=== PATIENT | female | born 1955 | race Caucasian/White ===

== ENCOUNTER 2017-06-03 12:53 | Emergency (ER) | payer OTHER ==
[~2017-06-03] VITALS: Ht 154.9 cm; Wt 705.0 kg
[~2017-06-03 12:53] MED LIST: CIPR500T4 PO; DIOV160T3 PO; FURO20 PO; KCL10C PO; LEVO75TA3 PO; LOVA1TAB47 PO; PLAV75TA PO; SYMB80AE INH
[2017-06-03 12:55] VITALS: BP 200/91; PULSE 98; RESP 18; TEMP 97.8; O2SAT 98
--- NOTE | 2017-06-03 13:34 | PD ---
HPI Chief Complaint: Respiratory Symptoms Time Seen by Provider: 13:34 Travel History International Travel<30 days: No Contact w/Intl Traveler<30days: Yes Name of Country Traveled to: N/A, airflight attendants supervisor Traveled to known affect area: No History of Present Illness HPI 62-year-old female with history of asthma, lupus, hypertension, GERD presents to emergency department today for evaluation of worsening cough and chest congestion and difficulty breathing. Patient states that she has had a cough for approximately 6 weeks. Of the last 2-3 weeks, the chest congestion and tightness has worsened. She is a airflight attendants supervisor and states that over the last 2 days her symptoms have gotten significantly worse. She states that she has felt like she is unable to get her breath. She denies any significant pain , just a tightness. She has no cardiac history. Patient states she came here for evaluation because she has to fly in 2 days and once her symptoms to be better. Cough is nonproductive. She has no fever or chills. She denies any history of PE or DVT. Patient has been treated with Levaquin and is now on Augmentin for the symptoms. She is completing a Medrol Dosepak. She has no other symptoms to report this time. PFSH Past Medical History Hx Anticoagulant Therapy: Yes Asthma: Yes Heart Rhythm Problems: Yes (IRREGULAR RHYTHM, MITRAL VALVE PROLAPSE) Cancer: No Cardiac Catheterization: No Cardiovascular Problems: Yes (hypertension, edema) High Cholesterol: Yes Chemotherapy: No Cerebrovascular Accident: No Diabetes: No Diminished Hearing: No Endocrine: Yes Genitourinary: No Hepatitis: No Hiatal Hernia: No Hypertension: Yes Immune Disorder: No Neurologic: Yes (FAMILY HX OF CVA) Psychiatric: Yes (ANXIETY) Reproductive: No Respiratory: Yes Thyroid Disease: Yes (HYPOTHYROID) ?: Not LMP: post menopausal Menopausal: Yes : 3 Para: 2 Miscarriage: 1 Tubal Ligation: Yes Past Surgical History Abdominal Surgery: Yes (APPY) AICD: No Appendectomy: Yes Body Medical Devices: BREASTS Coronary Artery Bypass Graft: No Gynecologic Surgery: Yes (LASH) Hysterectomy: Yes Joint Replacement: No Oral Surgery: Yes (TONSILECTOMY) Pacemaker: No Tonsillectomy: Yes Other Surgery: Yes (BREAST AUGMENTATION) Social History Alcohol Use: Yes (OCCASIONAL) Tobacco Use: No Substance Use: No Allergies-Medications (Allergen,Severity, Reaction): Coded Allergies: aspirin (Unverified Allergy, Severe, 02/07/17) RASH, RINGING IN EARS codeine (Unverified Allergy, Severe, 02/07/17) monosodium glutamate (Unverified Allergy, Severe, TACHYCARDIA, SHAKEY, ) sulfamethoxazole (Unverified Allergy, Severe, Rash, 02/07/17) trimethoprim (Unverified Allergy, Severe, Rash, 02/07/17) Uncoded Allergies: onions (Allergy, Mild, migranes, 11/13/06) Reported Meds & Prescriptions Reported Meds & Active Scripts Active Omeprazole 40 Mg Cap 40 Mg PO DAILY 14 Days Tessalon Perles (Benzonatate) 100 Mg Cap 100 Mg PO TID PRN Prednisone 50 Mg Tab 50 Mg PO DAILY 5 Days Reported Cipro (Ciprofloxacin HCl) 500 Mg Tab 500 Mg PO BID KCl 10 Meq Cap (Potassium Chloride) 10 Meq Capcr 10 Meq PO DAILY PRN Lasix 20 Mg Tab (Furosemide) 20 Mg Tab 20 Mg PO DAILY PRN Symbicort (Budesonide/Formoterol Fumarate) 80 Mcg/4.5 Mcg Aer 2 Puff INH DAILY * SHAKE WELL BEFORE USE * Levothyroxine 75 mcg (Levothyroxine Sodium) 75 Mcg Tab 75 Mcg PO DAILY Diovan Hct 160/12.5 (HCTZ/Valsartan) Unknown Strength Tab PO DAILY Plavix (Clopidogrel Bisulfate) 75 Mg Tab 75 Mg PO DAILY Mevacor (Lovastatin) 20 Mg Tab 20 Mg PO DAILY Review of Systems Except as stated in HPI: all other systems reviewed are Neg Physical Exam Narrative GENERAL: Well-nourished female patient, ambulatory no acute distress. Patient does have a coarse cough during her assessment. SKIN: Focused skin assessment warm/dry. HEAD: Atraumatic. Normocephalic. EYES: Pupils equal and round. No scleral icterus. No injection or drainage. ENT: No nasal bleeding or discharge. Mucous membranes pink and moist. NECK: Trachea midline. No JVD. CARDIOVASCULAR: Elevated rate and rhythm. No murmur appreciated. RESPIRATORY: No accessory muscle use. Diminished bases, INSPIRATORY AND EXPIRATORY wheeze, to auscultation. Breath sounds equal bilaterally. GASTROINTESTINAL: Abdomen soft, non-tender, nondistended. Hepatic and splenic margins not palpable. MUSCULOSKELETAL: No obvious deformities. No clubbing. No cyanosis. No edema. NEUROLOGICAL: Awake and alert. No obvious cranial nerve deficits. Motor grossly within normal limits. Normal speech. PSYCHIATRIC: Appropriate mood and affect; insight and judgment normal. Data Data Last Documented VS Vital Signs Date Time Temp Pulse Resp B/P (MAP) Pulse Ox O2 Delivery O2 Flow Rate FiO2 06/03/17 14:59 90 21 159/75 (103) 100 Room Air 06/03/17 12:55 97.8 Orders Orders Complete Blood Count With Diff (06/03/17 13:41) Basic Metabolic Panel (Bmp) (06/03/17 13:41) D-Dimer (06/03/17 13:41) Iv Access Insert/Monitor (06/03/17 13:41) Electrocardiogram (06/03/17 13:41) Ecg Monitoring (06/03/17 13:41) Oximetry (06/03/17 13:41) Oxygen Administration (06/03/17 13:41) Chest, Pa & Lat (06/03/17 13:41) Sodium Chloride 0.9% Flush (Ns Flush) (06/03/17 13:45) Methylprednisolone So Succ Inj (Solumedr (06/03/17 13:45) Albuterol-Ipratropium Neb (Duoneb Neb) (06/03/17 13:45) Potassium Chloride (Kcl) (06/03/17 15:00) Al-Mag Hy-Si 40-40-4 Mg/Ml Liq (Mag-Al P (06/03/17 15:15) Lidocaine 2% Viscous (Xylocaine 2% Visco (06/03/17 15:15) Ct Pulmonary Angiogram (06/03/17 ) Iohexol 350 Inj (Omnipaque 350 Inj) (06/03/17 15:34) Ed Discharge Order (06/03/17 15:59) Labs Laboratory Tests Test 06/03/17 13:57 White Blood Count 8.4 TH/MM3 Red Blood Count 4.28 MIL/MM3 Hemoglobin 13.3 GM/DL Hematocrit 38.8 % Mean Corpuscular Volume 90.5 FL Mean Corpuscular Hemoglobin 31.2 PG Mean Corpuscular Hemoglobin Concent 34.4 % Red Cell Distribution Width 14.1 % Platelet Count 227 TH/MM3 Mean Platelet Volume 6.2 FL Neutrophils (%) (Auto) 63.5 % Lymphocytes (%) (Auto) 22.2 % Monocytes (%) (Auto) 13.2 % Eosinophils (%) (Auto) 0.7 % Basophils (%) (Auto) 0.4 % Neutrophils # (Auto) 5.3 TH/MM3 Lymphocytes # (Auto) 1.9 TH/MM3 Monocytes # (Auto) 1.1 TH/MM3 Eosinophils # (Auto) 0.1 TH/MM3 Basophils # (Auto) 0.0 TH/MM3 CBC Comment AUTO DIFF Differential Total Cells Counted 100 Neutrophils % (Manual) 67 % Band Neutrophils % 2 % Lymphocytes % 19 % Monocytes % 8 % Neutrophils # (Manual) 6.1 TH/MM3 Metamyelocytes 2 % Myelocytes 2 % Differential Comment FINAL DIFF MANUAL Hypersegmented Polys Platelet Estimate NORMAL Platelet Morphology Comment NORMAL D-Dimer Quantitative (PE/DVT) 0.35 MG/L FEU Blood Urea Nitrogen 18 MG/DL Creatinine 1.00 MG/DL Random Glucose 98 MG/DL Calcium Level 8.5 MG/DL Sodium Level 134 MEQ/L Potassium Level 3.1 MEQ/L Chloride Level 100 MEQ/L Carbon Dioxide Level 25.0 MEQ/L Anion Gap 9 MEQ/L Estimat Glomerular Filtration Rate 56 ML/MIN MDM Medical Decision Making Medical Screen Exam Complete: Yes Emergency Medical Condition: Yes Medical Record Reviewed: Yes Differential Diagnosis Pneumonia versus influenza versus PE versus shree-induced cough versus bronchitis versus asthma exacerbation Narrative Course 62-year-old female presents emergency department for evaluation. Patient appears without distress. She does have a coarse cough, inspiratory and expiratory wheeze. She does feel short of breath however vital signs are stable and oxygen saturation is maintained greater than 96% on room air. Patient is given DuoNeb treatments and IV Solu-Medrol. Upon reassessment she states she does feel somewhat better but still short of breath. We will attempt GI cocktail in case this is reflux exacerbating her symptoms. Upon reassessment, patient states that this has helped her symptoms tremendously. I have discussed The patient my attending physician Dr. Arias who is also assess the patient. Will move forward with CT pulmonary angiogram. This is complete with no PE or acute infiltrate identified. Patient will be started on a higher dose of oral steroids encouraged to follow-up with her primary care provider and seek pulmonary evaluation. We have discussed the possibility of Shree induced cough and she is to discuss this with her primary care provider. She agrees to return immediately with any acute worsening of symptoms. Diagnosis Primary Impression: Asthma Qualified Codes: J45.41 - Moderate persistent asthma with (acute) exacerbation Additional Impressions: Shortness of breath Cough Bronchospasm Gastric reflux Referrals: Primary Care Physician Crop Supervisor Patient Instructions: Moderate Sedation in Children (ED) Additional Instructions: Follow up with your primary care provider- discuss alternative BP medication as lisinopril may be inducing your cough Return to ED with acute worsening of symptoms Med/Other Pt SpecificInfo: Prescription(s) given Scripts Aluminum Hydroxide-Mag Carb Liq (Gaviscon Liq) 95-358 Mg/15 Ml Susp 15 ML PO QID Y for HEARTBURN, #300 ML 0 Refills Maximum 120 mL/24 hrs. Prov: Rosy Pizarro 06/03/17 Omeprazole (Omeprazole) 40 Mg Cap 40 MG PO DAILY for 14 Days, #14 CAP 0 Refills Prov: Rosy Pizarro 06/03/17 Benzonatate (Tessalon Perles) 100 Mg Cap 100 MG PO TID Y for COUGH, #21 CAP 0 Refills Prov: Rosy Pizarro 06/03/17 Prednisone (Prednisone) 50 Mg Tab 50 MG PO DAILY for 5 Days, #5 TAB 0 Refills Prov: Rosy Pizarro 06/03/17 Disposition: 01 DISCHARGE HOME Condition: Stable Rosy Pizarro Jun 03, 2017 13:34
[2017-06-03] MEDS ORDERED: methylPREDNISolone SOD SUCC 125 MG/2 ML VIAL IV PUSH ONE (13:45)
[2017-06-03] MEDS ORDERED: SODIUM CHLORIDE 0.9% FLUSH 10 ML FLUSH IVF PRN (13:45)
[2017-06-03] MEDS: RESP: ALBUTEROL 2.5 MG/IPRATROPIUM 0.5 MG NEB (SCH) INH (13:56)
[2017-06-03 14:06] LABS: AUTOMATED NEUTROPHIL # 5.3 TH/MM3 (1.8-7.7); BASOPHIL % 0.4 % (0.0-2.0); EOSINOPHIL # 0.1 TH/MM3 (0-0.4); EOSINOPHIL % 0.7 % (0.0-4.0); HEMATOCRIT 38.8 % (35.0-46.0); LYMPH % 22.2 % (9.0-44.0); LYMPHOCYTE # 1.9 TH/MM3 (1.0-4.8); MEAN CELL VOLUME 90.5 FL (80.0-100.0); MEAN CORPUSCULAR HEMOGLOBIN 31.2 PG (27.0-34.0); MEAN CORPUSCULAR HGB CONC 34.4 % (32.0-36.0); MONO % 13.2 % (0.0-8.0); NEUT % 63.5 % (16.0-70.0); PLATELET COUNT 227 TH/MM3 (150-450); RED BLOOD COUNT 4.28 MIL/MM3 (4.00-5.30); RED CELL DISTRIBUTION WIDTH 14.1 % (11.6-17.2); WHITE BLOOD COUNT 8.4 TH/MM3 (4.0-11.0)
[2017-06-03 14:16] LABS: HEMO FLAGS AUTO DIFF
[2017-06-03 14:25] LABS: POTASSIUM 3.1 MEQ/L (3.5-5.1)
[2017-06-03 14:38] LABS: BANDS 2 % (0-6); METAMYELOCYTES 2 % (0-1); MYELOCYTES 2 % (0-0); NEUTROPHIL # MANUAL DIFF 6.1 TH/MM3 (1.8-7.7); POLYS (SEG NEUTROPHILS) 67 % (16-70); WBC DIFF SAMPLE 100
[2017-06-03 14:39] LABS: PLATELET ESTIMATE SMEAR NORMAL (NORMAL); PLATELET MORPHOLOGY NORMAL (NORMAL); SCAN/DIFF FINAL DIFF MANUAL
--- NOTE | 2017-06-03 14:50 | RADRPT ---
EXAM DATE/TIME: 06/03/2017 14:35 [facility] COMPARISON: No previous studies available for comparison. INDICATIONS : Asthma. Cough. Congestion. Short of breath. MEDICAL HISTORY : None. SURGICAL HISTORY : None. ENCOUNTER: Initial ACUITY: 1 week PAIN SCORE: 0/10 LOCATION: Bilateral chest FINDINGS: PA and lateral views of the chest demonstrate the lungs to be symmetrically aerated without evidence of mass, infiltrate or effusion. The cardiomediastinal contours are unremarkable. Osseous structure s are intact. CONCLUSION: Normal examination for a patient of this age. Cristi Amaya MD on June 03, 2017 at 14:48 Board Certified Radiologist. This report was verified electronically.
[2017-06-03 14:59] VITALS: BP 159/75; PULSE 90; RESP 21; O2SAT 100
[2017-06-03] MEDS ORDERED: POTASSIUM CHLORIDE 10 MEQ CONTROLLED RELEASE TAB PO ONE (15:00)
[2017-06-03] MEDS ORDERED: ALUMINUM/MAGNESIUM/SIMETH 30 ML CUP PO ONE (15:15)
[2017-06-03] MEDS ORDERED: LIDOCAINE VISCOUS 2% SOLN 15 ML UDC PO ONE (15:15)
[2017-06-03] MEDS ORDERED: IOHEXOL 350 MG/ML 10 ML VIAL (for RAD DIAG) IVCONTRAST ONE (15:34)
--- NOTE | 2017-06-03 15:50 | RADRPT ---
EXAM DATE/TIME: 06/03/2017 15:12 [facility] COMPARISON: No previous studies available for comparison. INDICATIONS : Cough and shortness of breath for three weeks. IV CONTRAST: 65 cc Omnipaque 350 (iohexol) IV RADIATION DOSE: 7.39 CTDIvol (mGy) MEDICAL HISTORY : Hypertension. Lupus. SURGICAL HISTORY : Tonsillectomy. ENCOUNTER: Initial ACUITY: 1 day PAIN SCALE: 0/10 LOCATION: Bilateral chest TECHNIQUE: Volumetric scanning of the chest was performed using a pulmonary embolism protocol MIP images were re constructed. Using automated exposure control and adjustment of the mA and/or kV according to patien t size, radiation dose was kept as low as reasonably achievable to obtain optimal diagnostic quality images. DICOM format image data is available electronically for review and comparison. Follow-up recommendations for detected pulmonary nodules are based at a minimum on nodule size and pa tient risk factors according to Fleischner Society Guidelines. FINDINGS: PULMONARY ARTERIES: No filling defects are seen in the pulmonary arteries through the segmental level. LUNGS: There is no consolidation or pneumothorax . No concerning pulmonary nodule is visualized. PLEURAE: There is no pleural thickening or pleural effusion. MEDIASTINUM: There is good visualization of the great vessels of the middle mediastinum. No evidence of mediastin al or hilar adenopathy/mass. MUSCULOSKELETAL: Within normal limits for patient age. MISCELLANEOUS: The visualized upper abdominal organs demonstrate no acute abnormality. CONCLUSION: 1. No evidence of pulmonary embolism. 2. No acute pulmonary infiltrates. Cristi Amaya MD on June 03, 2017 at 15:46 Board Certified Radiologist. This report was verified electronically.
[2017-06-03] MEDS ORDERED: ZANT150T2 PO (16:16)
[2017-06-03] MEDS ORDERED: BENZ100 PO (16:16)
[2017-06-03] MEDS ORDERED: PRED50 PO (16:16)
[2017-06-03] MEDS ORDERED: OMEP40CA2 PO (16:22)
[2017-06-03] MEDS ORDERED: GAVISUS PO (16:44)
[2017-06-03 17:45] VITALS: BP 147/71
--- NOTE | 2017-06-04 12:24 | EKG ---
Date Performed: 06/03/2017 Time Performed: 14:14:05 PTAGE: 62 years EKG: Sinus rhythm POSSIBLE RIGHT VENTRICULAR CONDUCTION DELAY BORDERLINE ECG PREVIOUS TRACING : 09/19/2014 15.37 Since previous tracing, T-wave change improved, otherwise n o significant change. DOCTOR: Andrea Connell Interpretating Date/Time 06/04/2017 12:23:54
== END 2017-06-03 17:48 | disposition home or self-care (01) ==
LOC: NEPE 12:53
DX: J45.41 Moderate persistent asthma with (acute) exacerbation (principal); K21.9 Gastro-esophageal reflux disease without esophagitis; E03.9 Hypothyroidism, unspecified; E78.00 Pure hypercholesterolemia, unspecified; I10 Essential (primary) hypertension; Z79.02 Long term (current) use of antithrombotics/antiplatelets
CPT/HCPCS: 71020; 71275; 80048; 85007; 85027; 85379; 93005; 94664; 96374; 99285; J2930; Q9967

== ENCOUNTER 2017-06-19 10:36 | Emergency (ER) | payer OTHER ==
[~2017-06-19] VITALS: Ht 154.9 cm; Wt 68.0 kg
[~2017-06-19 10:36] MED LIST changes: +BENZ100 PO; +GAVISUS PO; +OMEP40CA2 PO; +PRED50 PO
[2017-06-19 10:44] VITALS: BP 142/80; PULSE 110; RESP 20; TEMP 102.4; O2SAT 95
[2017-06-19] MEDS ORDERED: ALPR0.5T3 PO (10:58)
[2017-06-19] MEDS ORDERED: POTA10CA PO (10:58)
[2017-06-19] MEDS ORDERED: OMEP40CA2 PO (10:58)
[2017-06-19] MEDS ORDERED: FURO20TA PO (10:58)
[2017-06-19] MEDS ORDERED: VALS80TA2 (10:58)
[2017-06-19] MEDS ORDERED: TOPI25TA7 PO (10:58)
[2017-06-19] MEDS ORDERED: TIOT1AER2 INH (10:58)
[2017-06-19] MEDS ORDERED: CLOP75TA PO (10:58)
[2017-06-19] MEDS ORDERED: ZOLP5TAB3 PO (10:58)
[2017-06-19] MEDS ORDERED: FLUT50SP EACH NARE (10:58)
[2017-06-19] MEDS ORDERED: LOVA20TA PO (10:58)
[2017-06-19] MEDS ORDERED: SYMB160A INH (10:58)
[2017-06-19] MEDS ORDERED: LEVO50TA4 PO (10:58)
[2017-06-19] MEDS ORDERED: HYDR200T3 PO (10:58)
[2017-06-19 11:11] VITALS: BP 141/65; PULSE 99; RESP 19; O2SAT 95
[2017-06-19 11:12] VITALS: BP 141/65; PULSE 99; RESP 19; TEMP 102.4; O2SAT 95
[2017-06-19] MEDS ORDERED: IBUPROFEN 800 MG TAB PO ONE (11:15)
[2017-06-19] MEDS ORDERED: SODIUM CHLOR 0.9% 1000 ML INJ 1,000 ML IV ONE (11:15)
--- NOTE | 2017-06-19 11:29 | PD ---
HPI Chief Complaint: Cold / Flu Symptoms Time Seen by Provider: 10:55 Travel History International Travel<30 days: No Contact w/Intl Traveler<30days: No Traveled to known affect area: No History of Present Illness HPI 62-year-old female presents to the emergency department for evaluation of cough , fever, chills, dysuria 4 days. Patient states she just recently returned from [place] on plane. The symptoms started when she was on vacation. She was tubing in the snow with her grandkids. Her grandkids were all sick with various symptoms. She states one of her grandkids had strep throat but the patient states she has no throat pain at this time The cough is nonproductive and feels like extreme congestion in her chest. She has mild rhinorrhea. Patient complains of generalized body aches. Patient denies any abdominal pain , nausea or vomiting or diarrhea. Patient has history of hypertension, hyperlipidemia and asthma. She takes Plavix daily for blood clot prevention. She states her primary started her on Plavix prophylactically due to her extensive family history of heart disease. PFSH Past Medical History Hx Anticoagulant Therapy: Yes Asthma: Yes Autoimmune Disease: Yes (LUPUS) Heart Rhythm Problems: Yes (IRREGULAR RHYTHM, MITRAL VALVE PROLAPSE) Cancer: No Cardiac Catheterization: No Cardiovascular Problems: Yes (hypertension, edema) High Cholesterol: Yes Chemotherapy: No Cerebrovascular Accident: No Diabetes: No Diminished Hearing: No Endocrine: Yes Gastrointestinal Disorders: Yes (IBS) Genitourinary: No Hepatitis: No Hiatal Hernia: No Hypertension: Yes Immune Disorder: No Neurologic: Yes (FAMILY HX OF CVA) Psychiatric: Yes (ANXIETY) Reproductive: No Respiratory: Yes Thyroid Disease: Yes (HYPOTHYROID) Tetanus Vaccination: Unknown Influenza Vaccination: No ?: Not Menopausal: No : 3 Para: 2 Miscarriage: 1 Tubal Ligation: Yes Past Surgical History Abdominal Surgery: Yes (APPY) AICD: No Appendectomy: Yes Body Medical Devices: BREASTS Coronary Artery Bypass Graft: No Gynecologic Surgery: Yes (LASH) Hysterectomy: Yes Joint Replacement: No Oral Surgery: Yes (TONSILECTOMY) Pacemaker: No Tonsillectomy: Yes Other Surgery: Yes (BREAST AUGMENTATION) Family History Family Myocardial Infarction: Yes Social History Alcohol Use: No Tobacco Use: No Substance Use: No Allergies-Medications (Allergen,Severity, Reaction): Coded Allergies: aspirin (Unverified Allergy, Severe, 06/19/17) RASH, RINGING IN EARS codeine (Unverified Allergy, Severe, 06/19/17) monosodium glutamate (Unverified Allergy, Severe, TACHYCARDIA, SHAKEY, ) sulfamethoxazole (Unverified Allergy, Severe, Rash, 06/19/17) trimethoprim (Unverified Allergy, Severe, Rash, 06/19/17) Uncoded Allergies: onions (Allergy, Mild, migranes, 11/13/06) Reported Meds & Prescriptions Reported Meds & Active Scripts Active Reported Furosemide 20 Mg Tab 20 Mg PO DAILY Omeprazole 40 Mg Cap 40 Mg PO DAILY Topiramate 25 Mg Tab 25 Mg PO BID Hydroxychloroquine (Hydroxychloroquine Sulfate) 200 Mg Tab 200 Mg PO DAILY Takw with food Zolpidem (Zolpidem Tartrate) 5 Mg Tab 5 Mg PO HS PRN Lovastatin 20 Mg Tab 20 Mg PO DAILY Levothyroxine (Levothyroxine Sodium) 50 Mcg Tab 50 Mcg PO DAILY Fluticasone Nasal [place] 50 Mcg/Act Naspr 50 Mcg EACH NARE BID 50 mcg/spray Potassium Chloride ER (Potassium Chloride) 10 Meq Cap 10 Meq PO DAILY Spiriva Respimat Inh (Tiotropium Inh) 1.25 Mcg/Act Aero 2 Puff INH DAILY 1.25 mcg = 1 inhalation Clopidogrel (Clopidogrel Bisulfate) 75 Mg Tab 75 Mg PO DAILY Alprazolam 0.5 Mg Tab 0.5 Mg PO HS PRN Symbicort Inh (Budesonide/Formoterol Fumarate) 160-4.5 Mcg/Act Aero 1 Puff INH Q12HR Valsartan-Hctz 80-12.5 mg Tab (Valsartan/Hydrochlorothiazide) 80 Mg-12.5 Mg Tablet Review of Systems Except as stated in HPI: all other systems reviewed are Neg Physical Exam Narrative GENERAL: Well-nourished, well-developed 62-year-old female in no acute respiratory distress. SKIN: Focused skin assessment warm/flushed/dry. HEAD: Atraumatic. Normocephalic. EYES: Pupils equal and round. No scleral icterus. No injection or drainage. ENT: No nasal bleeding or discharge. Mucous membranes pink and moist. NECK: Trachea midline. No JVD. CARDIOVASCULAR: Regular rate and rhythm. No murmur appreciated. RESPIRATORY: No accessory muscle use. Breath sounds course in bilateral bases. GASTROINTESTINAL: Abdomen soft, non-tender, nondistended. Hepatic and splenic margins not palpable. MUSCULOSKELETAL: No obvious deformities. No clubbing. No cyanosis. No edema. NEUROLOGICAL: Awake and alert. No obvious cranial nerve deficits. Motor grossly within normal limits. Normal speech. PSYCHIATRIC: Appropriate mood and affect; insight and judgment normal. Data Data Last Documented VS Vital Signs Date Time Temp Pulse Resp B/P (MAP) Pulse Ox O2 Delivery O2 Flow Rate FiO2 06/19/17 13:01 83 17 133/60 (84) 99 06/19/17 12:29 100.8 06/19/17 11:37 Room Air Orders Orders Ibuprofen (Motrin) (06/19/17 11:15) Sodium Chlor 0.9% 1000 Ml Inj (Ns 1000 M (06/19/17 11:15) Electrocardiogram (06/19/17 11:14) Complete Blood Count With Diff (06/19/17 11:14) Comprehensive Metabolic Panel (06/19/17 11:14) Lactic Acid Sepsis Protocol (06/19/17 11:14) Magnesium (Mg) (06/19/17 11:14) Lipase (06/19/17 11:14) Ckmb (Isoenzyme) Profile (06/19/17 11:14) Troponin I (06/19/17 11:14) Urinalysis - C+S If Indicated (06/19/17 11:14) Influenzae A/B Antigen (06/19/17 11:14) Blood Culture (06/19/17 11:14) Chest, Single Ap (06/19/17 11:14) Ecg Monitoring (06/19/17 11:14) Iv Access Insert/Monitor (06/19/17 11:14) Oximetry (06/19/17 11:14) CKMB (06/19/17 11:20) CKMB% (06/19/17 11:20) Ed Discharge Order (06/19/17 12:25) Labs Laboratory Tests Test 06/19/17 11:20 White Blood Count 3.9 TH/MM3 Red Blood Count 3.76 MIL/MM3 Hemoglobin 12.0 GM/DL Hematocrit 35.0 % Mean Corpuscular Volume 93.0 FL Mean Corpuscular Hemoglobin 31.9 PG Mean Corpuscular Hemoglobin Concent 34.3 % Red Cell Distribution Width 14.6 % Platelet Count 201 TH/MM3 Mean Platelet Volume 6.7 FL Neutrophils (%) (Auto) 63.5 % Lymphocytes (%) (Auto) 18.7 % Monocytes (%) (Auto) 16.3 % Eosinophils (%) (Auto) 1.1 % Basophils (%) (Auto) 0.4 % Neutrophils # (Auto) 2.5 TH/MM3 Lymphocytes # (Auto) 0.7 TH/MM3 Monocytes # (Auto) 0.6 TH/MM3 Eosinophils # (Auto) 0.0 TH/MM3 Basophils # (Auto) 0.0 TH/MM3 CBC Comment DIFF FINAL Differential Comment Urine Color YELLOW Urine Turbidity CLEAR Urine pH GREATER/EQUAL 9.0 Urine Specific [place] 1.018 Urine Protein 30 mg/dL Urine Glucose (UA) NEG mg/dL Urine Ketones NEG mg/dL Urine Occult Blood NEG Urine Nitrite NEG Urine Bilirubin NEG Urine Urobilinogen 0.2 MG/DL Urine Leukocyte Esterase NEG Urine RBC 1 /hpf Urine WBC 2 /hpf Urine Mucus FEW /lpf Microscopic Urinalysis Comment CATH-CULT NOT IND Blood Urea Nitrogen 13 MG/DL Creatinine 0.91 MG/DL Random Glucose 91 MG/DL Total Protein 6.3 GM/DL Albumin 3.2 GM/DL Calcium Level 8.0 MG/DL Magnesium Level 2.2 MG/DL Alkaline Phosphatase 106 U/L Aspartate Amino Transf (AST/SGOT) 93 U/L Alanine Aminotransferase (ALT/SGPT) 128 U/L Total Bilirubin 0.6 MG/DL Sodium Level 138 MEQ/L Potassium Level 3.6 MEQ/L Chloride Level 108 MEQ/L Carbon Dioxide Level 19.2 MEQ/L Anion Gap 11 MEQ/L Estimat Glomerular Filtration Rate 63 ML/MIN Lactic Acid Level 0.4 mmol/L Total Creatine Kinase 115 U/L Creatine Kinase MB 0.6 NG/ML Troponin I LESS THAN 0.02 NG/ML Lipase 286 U/L [facility] Medical Decision Making Medical Screen Exam Complete: Yes Emergency Medical Condition: Yes Differential Diagnosis Differential diagnoses include but not limited to influenza, bronchitis, URI, pneumonia, viral syndrome Narrative Course Patient placed on monitor, IV obtained and blood work sent the lab. CBC, CMP, Lactic acid, Magnesium, Lipase, Troponin, CK-MB, UA and influenza. Chest x-ray ordered and pending. EKG ordered and interpreted. EKG shows sinus rhythm with heart rate 94. Patient was found to be febrile in triage with a temp of 102.4. Ibuprofen 800mg PO given. 1L NS IV bolus given. Chest x-ray shows no acute disease. Influenza positive for Flu A antigen. Results discussed with patient and due to the length of time since the onset of symptoms Tamiflu was deferred. Patient discharged home with instructions for supportive care and to return to the emergency Department with any worsening condition. Patient given instructions to watch for signs of secondary infection, such as pneumonia. Patient states she will follow up with primary care and come back to the emergency department with any worsening condition. Diagnosis Primary Impression: Influenza Referrals: Primary Care Physician Patient Instructions: General Instructions, H1N1 Influenza in Children (GEN) Additional Instructions: Please return to emergency department if your symptoms return or worsen. Follow up with your primary care provider. Supportive care, stay hydrated, get enough rest, diet as tolerated. Alternate ibuprofen and Tylenol as needed for pain or fevers. Disposition: 01 DISCHARGE HOME Condition: Stable Yolie Boyer Jun 19, 2017 11:29
[2017-06-19 11:30] LABS: AUTOMATED NEUTROPHIL # 2.5 TH/MM3 (1.8-7.7); BASOPHIL % 0.4 % (0.0-2.0); EOSINOPHIL % 1.1 % (0.0-4.0); LYMPH % 18.7 % (9.0-44.0); LYMPHOCYTE # 0.7 TH/MM3 (1.0-4.8); MEAN CORPUSCULAR HEMOGLOBIN 31.9 PG (27.0-34.0); MEAN CORPUSCULAR HGB CONC 34.3 % (32.0-36.0); MEAN PLATELET VOLUME 6.7 FL (7.0-11.0); MONO % 16.3 % (0.0-8.0); MONOCYTE # 0.6 TH/MM3 (0-0.9); NEUT % 63.5 % (16.0-70.0); PLATELET COUNT 201 TH/MM3 (150-450); RED BLOOD COUNT 3.76 MIL/MM3 (4.00-5.30); RED CELL DISTRIBUTION WIDTH 14.6 % (11.6-17.2); WHITE BLOOD COUNT 3.9 TH/MM3 (4.0-11.0)
[2017-06-19 11:37] VITALS: O2SAT 99
--- NOTE | 2017-06-19 11:40 | RADRPT ---
EXAM DATE/TIME: 06/19/2017 11:24 [facility] COMPARISON: CHEST SINGLE AP, September 19, 2014, 16:48. INDICATIONS : Chest pain and shortness of breath. Flu like symptoms. MEDICAL HISTORY : Hypertension. Lupus. Asthma. SURGICAL HISTORY : Tonsillectomy. ENCOUNTER: Initial ACUITY: 3 weeks PAIN SCORE: 4/10 LOCATION: Bilateral chest FINDINGS: A single view of the chest demonstrates the lungs to be symmetrically aerated without evidence of mas s, infiltrate or effusion. The cardiomediastinal contours are unremarkable. Osseous structures are intact. CONCLUSION: No acute disease. Danish Abraham MD FACR on June 19, 2017 at 11:38 Board Certified Radiologist. This report was verified electronically.
[2017-06-19 11:49] LABS: BILIRUBIN, URINE NEG (NEG); BLOOD, URINE NEG (NEG); GLUCOSE,URINE NEG (NEG); KETONE, URINE NEG (NEG); NITRITE,URINE NEG (NEG); PH, URINE GREATER/EQUAL 9.0 (5.0-8.5); URINE COLOR YELLOW (YELLW/STRAW); URINE LEUKOCYTE ESTERASE NEG (NEG)
[2017-06-19 11:52] LABS: ALBUMIN 3.2 GM/DL (3.4-5.0); AST (GOT) 93 U/L (15-37); BICARBONATE 19.2 MEQ/L (21.0-32.0); BLOOD UREA NITROGEN 13 MG/DL (7-18); CHLORIDE 108 MEQ/L (98-107); CREATININE 0.91 MG/DL (0.50-1.00); GLOMERULAR FILTRATION RATE 63 ML/MIN (>89); GLUCOSE,RANDOM 91 MG/DL (74-106); LIPASE 286 U/L (73-393); MAGNESIUM 2.2 MG/DL (1.5-2.5); MUCUS URINE FEW /lpf (OCC); SODIUM (NA) 138 MEQ/L (136-145)
[2017-06-19 11:57] LABS: ALKALINE PHOSPHATASE 106 U/L (45-117); ALT (GPT) 128 U/L (10-53); TOTAL BILIRUBIN ADULT 0.6 MG/DL (0.2-1.0); TOTAL PROTEIN 6.3 GM/DL (6.4-8.2); TROPONIN I LESS THAN 0.02 NG/ML (0.02-0.05)
[2017-06-19 12:29] VITALS: TEMP 100.8
[2017-06-19 13:01] VITALS: BP 133/60
--- NOTE | 2017-06-20 17:13 | EKG ---
Date Performed: 06/19/2017 Time Performed: 11:35:19 PTAGE: 62 years EKG: Sinus rhythm LOW QRS VOLTAGE IN EXTREMITY LEADS INFERIOR MYOCARDIAL INFARCTION ANTEROSEPTAL MYOCARDIAL INFARCTION ABNORMAL ECG Compared to PREVIOUS TRACING , the patient now has anteroseptal Q waves concerning for an anterosepta l NC, age undetermined. There is also nondiagnostic inferior Q-waves and new anteroseptal Q-waves. Cl inical correlation is suggested. PREVIOUS TRACIN06/19/2017 11.34 DOCTOR: Bhavna Gan Interpretating Date/Time 06/20/2017 17:12:30
== END 2017-06-19 13:03 | disposition home or self-care (01) ==
LOC: NEPC 10:36
DX: J11.1 Influenza due to unidentified influenza virus with other respiratory manifestations (principal); J45.909 Unspecified asthma, uncomplicated; M32.9 Systemic lupus erythematosus, unspecified; I34.1 Nonrheumatic mitral (valve) prolapse; I10 Essential (primary) hypertension; E78.00 Pure hypercholesterolemia, unspecified; K58.9 Irritable bowel syndrome, unspecified; E03.9 Hypothyroidism, unspecified; R94.31 Abnormal electrocardiogram [ECG] [EKG]
CPT/HCPCS: 71010; 80053; 81001; 82550; 82552; 83605; 83690; 83735; 84484; 85025; 87040; 87804; 93005; 96360; 99285; J7030